=== PATIENT | female | born 1975 | race Two or more races ===

== ENCOUNTER 2025-07-23 11:35 | Emergency (ER) | payer MEDICAID, OTHER ==
[~2025-07-23] VITALS: Ht 157.5 cm; Wt 80.0 kg
[2025-07-23 11:37] VITALS: O2SAT 98
[2025-07-23 14:13] VITALS: BP 150/70; PULSE 97; RESP 18; TEMP 37.1; O2SAT 98
== END 2025-07-23 14:13 | disposition home or self-care (01) ==
LOC: ER 11:35
DX: K08.89 Other specified disorders of teeth and supporting structures (principal)
CPT/HCPCS: 99283